=== PATIENT | male | born 1945 | race Two or more races ===

== ENCOUNTER 2022-08-19 05:51 | Inpatient (IN) | payer OTHER ==
[~2022-08-19] VITALS: Ht 170.2 cm; Wt 71.1 kg
[2022-08-19] MEDS ORDERED: SODIUM CHLORIDE 0.9% 500 ML IVB ONE (08:30)
[2022-08-19] MEDS ORDERED: SODIUM CHLORIDE 0.9% 1,000 ML IV ONE (08:30)
[2022-08-19 09:06] LABS: Basophils # (auto) 0 10 ^3/uL (0-0.2); Basophils % (auto) 0.3 % (0.0-2.0); Eosinophils # (auto) 0 10 ^3/uL (0-0.8); Eosinophils % (auto) 0.1 % (0.0-7.0); Hematocrit 36.6 % (41.0-53.0); Hemoglobin 12.1 g/dL (13.5-17.5); Lymphocytes # (auto) 0.9 10 ^3/uL (0.4-5.4); Lymphocytes % (auto) 11.9 % (10.0-50.0); Mean Corpuscular Hemoglobin 30.6 pg (28.0-32.0); Mean Corpuscular Hgb Conc. 33.1 g/dL (32.0-36.0); Mean Corpuscular Volume 92.5 fL (80.0-100.0); Monocytes # (auto) 0.4 10 ^3/uL (0-1.3); Monocytes % (auto) 4.4 % (0.0-12.0); Neutrophils # (auto) 6.6 10 ^3/uL (1.6-8.6); Neutrophils % (auto) 83.3 % (37.0-80.0); Nucleated Red Blood Cells % 0.1 %; Red Blood Cells 3.96 10^6/uL (4.5-5.90)
[2022-08-19] MEDS ORDERED: MORPHINE SULFATE INJ 2 MG/ml SYRG IV ONE (09:15)
[2022-08-19] MEDS ORDERED: ONDANSETRON HCL 4 MG/2 ML VIAL IV ONE ×2 (09:15→14:30)
[2022-08-19 09:20] LABS: INR 1.13 (0.9-1.15); Partial Thromboplastin Time 24.6 sec (24.6-33.4)
[2022-08-19 09:23] LABS: Albumin 2.9 g/dL (3.4-5.0); Calcium 8.6 mg/dL (8.5-10.1); Magnesium 2.1 mg/dL (1.6-2.6); Potassium 4.6 mmol/L (3.5-5.1)
[2022-08-19 09:27] LABS: BUN/Creatinine Ratio 26.9; Total Protein 5.7 g/dL (6.4-8.2)
[2022-08-19] MEDS: HYDROcodone-ACET 5/325MG TAB PO ONE ×2 (14:12→14:18)
[2022-08-19] MEDS ORDERED: HYDROmorphone HCL 2 MG/ML VL/or syr IV ONE (14:30)
[2022-08-19 17:05] LABS: Basophils # (auto) 0 10 ^3/uL (0-0.2); Basophils % (auto) 0.4 % (0.0-2.0); Eosinophils # (auto) 0 10 ^3/uL (0-0.8); Eosinophils % (auto) 0.5 % (0.0-7.0); Hematocrit 33.5 % (41.0-53.0); Hemoglobin 11.4 g/dL (13.5-17.5); Lymphocytes % (auto) 27.7 % (10.0-50.0); Mean Corpuscular Hemoglobin 31.5 pg (28.0-32.0); Mean Corpuscular Hgb Conc. 34.1 g/dL (32.0-36.0); Mean Corpuscular Volume 92.5 fL (80.0-100.0); Monocytes # (auto) 0.5 10 ^3/uL (0-1.3); Monocytes % (auto) 6.6 % (0.0-12.0); Neutrophils # (auto) 4.6 10 ^3/uL (1.6-8.6); Neutrophils % (auto) 64.8 % (37.0-80.0); Nucleated Red Blood Cells % 0.1 %; Red Blood Cells 3.62 10^6/uL (4.5-5.90); Red Cell Distribution Width 14.6 % (11.8-14.3); White Blood Cell 7.1 10^3/uL (4.4-10.8)
[2022-08-19] MEDS ORDERED: PANTOPRAZOLE 40 MG/10 ML VIAL INJ IV ONE (19:00)
[2022-08-19] MEDS ORDERED: ONDANSETRON HCL 4 MG/2 ML VIAL IV PRN (19:00)
[2022-08-19] MEDS ORDERED: cefTRIAXone 1GM/50ML D5W 50 ML IV ONE (19:00)
[2022-08-19] MEDS ORDERED: OCTREOTIDE ACETATE 100 MCG in SODIUM CHL 0.9% 50 ML IV ONE (19:00)
[2022-08-19] MEDS ORDERED: NITROGLYCERIN 0.4 MG SL TAB SL PRN (19:00)
[2022-08-19] MEDS ORDERED: hydrALAZINE HCL 20 MG/ML VL IV PRN (19:30)
[2022-08-19 20:27] LABS: % Iron Saturation 50.8 % (20-55)
[2022-08-19] MEDS ORDERED: OCTREOTIDE ACETATE 500 MCG/ML VL ONE (21:27)
[2022-08-19] MEDS ORDERED: OCTREOTIDE ACETATE 100 MCG/ML VL ONE (21:27)
[2022-08-19] MEDS: SODIUM CHLORIDE 0.9% 1,000 ML IV SCH (21:44)
[2022-08-19] MEDS: OCTREOTIDE ACETATE 500 MCG in SODIUM CHL 0.9% 99 ML IV SCH (21:56)
[2022-08-19] MEDS: metroNIDAZOLE 500MG/100ML 100 ML IV SCH (22:43)
[2022-08-19] MEDS: PANTOPRAZOLE 40 MG/10 ML VIAL INJ IV SCH (22:45)
[2022-08-20] MEDS ORDERED: HYDROcodone-ACET 5/325MG TAB PO ONE (00:30)
[2022-08-20 01:28] LABS: Hematocrit 29.7 % (41.0-53.0); Hemoglobin 10.2 g/dL (13.5-17.5)
[2022-08-20] MEDS: metroNIDAZOLE 500MG/100ML 100 ML IV SCH (05:54)
[2022-08-20] MEDS: OCTREOTIDE ACETATE 500 MCG in SODIUM CHL 0.9% 99 ML IV SCH (06:50)
[2022-08-20 07:36] LABS: BUN/Creatinine Ratio 25.7; Calcium 8.1 mg/dL (8.5-10.1); Potassium 5.2 mmol/L (3.5-5.1)
[2022-08-20 07:37] LABS: Basophils # (auto) 0.1 10 ^3/uL (0-0.2); Basophils % (auto) 0.9 % (0.0-2.0); Eosinophils # (auto) 0.1 10 ^3/uL (0-0.8); Eosinophils % (auto) 1.1 % (0.0-7.0); Hematocrit 28.8 % (41.0-53.0); Hemoglobin 9.9 g/dL (13.5-17.5); Lymphocytes # (auto) 3.6 10 ^3/uL (0.4-5.4); Lymphocytes % (auto) 33.1 % (10.0-50.0); Mean Corpuscular Hemoglobin 32.4 pg (28.0-32.0); Mean Corpuscular Hgb Conc. 34.5 g/dL (32.0-36.0); Mean Corpuscular Volume 93.9 fL (80.0-100.0); Monocytes # (auto) 0.7 10 ^3/uL (0-1.3); Monocytes % (auto) 6.6 % (0.0-12.0); Neutrophils # (auto) 6.3 10 ^3/uL (1.6-8.6); Neutrophils % (auto) 58.3 % (37.0-80.0); Nucleated Red Blood Cells % 0.1 %; Red Blood Cells 3.07 10^6/uL (4.5-5.90); Red Cell Distribution Width 15.1 % (11.8-14.3); White Blood Cell 10.8 10^3/uL (4.4-10.8)
[2022-08-20] MEDS: SODIUM CHLORIDE 0.9% 1,000 ML IV SCH ×3 (08:45→19:33)
[2022-08-20] MEDS ORDERED: cefTRIAXone 1GM/50ML D5W 50 ML IV SCH (09:00)
[2022-08-20 09:56] LABS: Cholesterol 76 mg/dL (< 200); HDL Cholesterol 31 mg/dL (40-59); LDL Cholesterol 37 mg/dL (< 100); Triglycerides 68 mg/dL (< 150)
[2022-08-20] MEDS: PANTOPRAZOLE 40 MG/10 ML VIAL INJ IV SCH ×2 (10:19→21:35)
[2022-08-20 12:38] LABS: Urine Bacteria NONE SEEN /hpf (None Seen); Urine Blood Negative /uL (Negative); Urine Specific Gravity 1.025 (1.001-1.035); Urine WBC <1 /hpf (0 - 3)
[2022-08-20] MEDS ORDERED: MORPHINE SULFATE INJ 2 MG/ml SYRG IV ONE (13:45)
[2022-08-20 13:59] LABS: Folate (Folic Acid) 9.25 ng/mL (5.38-24)
[2022-08-20] MEDS ORDERED: MORPHINE SULFATE INJ 2 MG/ml SYRG IV PRN (14:15)
[2022-08-20 14:45] LABS: Hematocrit 24.3 % (41.0-53.0); Hemoglobin 8.4 g/dL (13.5-17.5)
[2022-08-20] MEDS: TAMSULOSIN HYDROCHLORIDE 0.4 MG CAP PO SCH (16:50)
[2022-08-20] MEDS: MORPHINE SULFATE INJ 2 MG/ml SYRG IV PRN ×2 (16:53→21:36)
[2022-08-20 18:30] VITALS: BP 102/52
[2022-08-20 19:44] LABS: Hemoglobin 8.4 g/dL (13.5-17.5)
[2022-08-20 19:47] LABS: Hematocrit 24.6 % (41.0-53.0)
[2022-08-20 22:00] VITALS: BP 121/65
[2022-08-20] MEDS ORDERED: TAM04C PO (22:59)
[2022-08-20] MEDS ORDERED: LISI20TA28 PO (22:59)
[2022-08-20] MEDS ORDERED: HYDR-4798 PO (23:00)
[2022-08-20] MEDS ORDERED: POLYETHYLENE GLYCOL 17 GM PWDR PO ONE (23:30)
[2022-08-20] MEDS ORDERED: GOLYTELY 4L KIT PO ONE (23:30)
[2022-08-21] VITALS (7 sets, daily range): BP systolic 114–146; BP diastolic 54–78
[2022-08-21] MEDS ORDERED: POLYETHYLENE GLYCOL 17 GM PWDR PO ONE (06:00)
[2022-08-21] MEDS ORDERED: GOLYTELY 4L KIT PO ONE (06:00)
[2022-08-21] MEDS: SODIUM CHLORIDE 0.9% 1,000 ML IV SCH ×3 (06:28→20:52)
[2022-08-21] MEDS ORDERED: SODIUM CHLORIDE LOCK 10 ML ONE (07:57)
[2022-08-21] MEDS: PANTOPRAZOLE 40 MG/10 ML VIAL INJ IV SCH ×2 (09:58→20:52)
[2022-08-21] MEDS: diphenhdrAMINE HCL 50 MG/1 ML VL ONE ×2 (11:58→12:04)
[2022-08-21] MEDS: fentaNYL CITRATE 100 MCG/2 ML VL ONE ×2 (11:58→12:04)
[2022-08-21] MEDS: MIDAZOLAM HCL 5 MG/ML-1ML VIAL ONE ×2 (11:58→12:04)
[2022-08-21] MEDS: TAMSULOSIN HYDROCHLORIDE 0.4 MG CAP PO SCH (18:09)
[2022-08-21] MEDS: HYDROcodone-ACET 10/325MG TAB PO PRN (18:09)
[2022-08-22] VITALS (11 sets, daily range): BP systolic 100–133; BP diastolic 51–70
[2022-08-22] MEDS: HYDROcodone-ACET 10/325MG TAB PO PRN ×3 (03:09→21:36)
[2022-08-22] MEDS: SODIUM CHLORIDE 0.9% 1,000 ML IV SCH ×2 (06:19→10:45)
[2022-08-22 06:59] LABS: Potassium 3.8 mmol/L (3.5-5.1)
[2022-08-22 07:03] LABS: Eosinophils # (auto) 0.2 10 ^3/uL (0-0.8); Lymphocytes # (auto) 1.5 10 ^3/uL (0.4-5.4); Monocytes # (auto) 0.3 10 ^3/uL (0-1.3); Nucleated Red Blood Cells % 0.1 %; White Blood Cell 4.7 10^3/uL (4.4-10.8)
[2022-08-22 07:04] LABS: Basophils # (auto) 0.1 10 ^3/uL (0-0.2); Basophils % (auto) 1.2 % (0.0-2.0); Eosinophils % (auto) 3.5 % (0.0-7.0); Hematocrit 18.3 % (41.0-53.0); Lymphocytes % (auto) 32.7 % (10.0-50.0); Mean Corpuscular Hemoglobin 32.3 pg (28.0-32.0); Mean Corpuscular Hgb Conc. 34.9 g/dL (32.0-36.0); Mean Corpuscular Volume 92.5 fL (80.0-100.0); Monocytes % (auto) 6.2 % (0.0-12.0); Neutrophils # (auto) 2.6 10 ^3/uL (1.6-8.6); Neutrophils % (auto) 56.4 % (37.0-80.0); Red Blood Cells 1.97 10^6/uL (4.5-5.90); Red Cell Distribution Width 14.8 % (11.8-14.3)
[2022-08-22 07:05] LABS: BUN/Creatinine Ratio 13.6; Calcium 7.8 mg/dL (8.5-10.1)
[2022-08-22 07:40] LABS: Hemoglobin 6.4 g/dL (13.5-17.5)
[2022-08-22] MEDS: PANTOPRAZOLE 40 MG/10 ML VIAL INJ IV SCH ×2 (09:03→21:35)
[2022-08-22] MEDS ORDERED: SODIUM CHLORIDE LOCK 10 ML ONE (10:19)
[2022-08-22] MEDS ORDERED: diphenhdrAMINE HCL 50 MG/1 ML VL ONE (10:19)
[2022-08-22] MEDS ORDERED: MIDAZOLAM HCL 5 MG/ML-1ML VIAL ONE (10:19)
[2022-08-22] MEDS ORDERED: fentaNYL CITRATE 100 MCG/2 ML VL ONE (10:20)
[2022-08-22] MEDS ORDERED: LIDOCAINE VISCOUS 2% 15ML UD ONE (10:33)
[2022-08-22] MEDS: TAMSULOSIN HYDROCHLORIDE 0.4 MG CAP PO SCH (19:05)
[2022-08-22] MEDS: SUCRALFATE 1 GM/10 ML ORAL SUSP PO SCH (21:35)
[2022-08-23 02:22] VITALS: BP 119/62
[2022-08-23] MEDS: HYDROcodone-ACET 10/325MG TAB PO PRN ×2 (04:26→09:14)
[2022-08-23] MEDS: SODIUM CHLORIDE 0.9% 1,000 ML IV SCH ×2 (04:39→13:25)
[2022-08-23 05:00] VITALS: BP 110/60
[2022-08-23 06:39] LABS: Basophils # (auto) 0 10 ^3/uL (0-0.2); Basophils % (auto) 1.1 % (0.0-2.0); Eosinophils # (auto) 0.2 10 ^3/uL (0-0.8); Eosinophils % (auto) 4.2 % (0.0-7.0); Hematocrit 24.6 % (41.0-53.0); Hemoglobin 8.6 g/dL (13.5-17.5); Lymphocytes # (auto) 1.2 10 ^3/uL (0.4-5.4); Lymphocytes % (auto) 28.6 % (10.0-50.0); Mean Corpuscular Hemoglobin 31.7 pg (28.0-32.0); Mean Corpuscular Volume 90.6 fL (80.0-100.0); Monocytes # (auto) 0.3 10 ^3/uL (0-1.3); Monocytes % (auto) 6.3 % (0.0-12.0); Neutrophils # (auto) 2.6 10 ^3/uL (1.6-8.6); Neutrophils % (auto) 59.8 % (37.0-80.0); Nucleated Red Blood Cells % 0.4 %; Red Blood Cells 2.71 10^6/uL (4.5-5.90); Red Cell Distribution Width 15.3 % (11.8-14.3); White Blood Cell 4.3 10^3/uL (4.4-10.8)
[2022-08-23] MEDS: SUCRALFATE 1 GM/10 ML ORAL SUSP PO SCH ×2 (06:46→11:05)
[2022-08-23 06:54] LABS: BUN/Creatinine Ratio 11.4; Calcium 7.4 mg/dL (8.5-10.1); Potassium 3.5 mmol/L (3.5-5.1)
[2022-08-23 08:05] VITALS: BP 130/74
[2022-08-23 09:00] VITALS: BP 130/74
[2022-08-23] MEDS: PANTOPRAZOLE 40 MG/10 ML VIAL INJ IV SCH (09:14)
[2022-08-23] MEDS ORDERED: SUCR1TAB22 OR (11:03)
[2022-08-23] MEDS ORDERED: PANT40TA2 PO (11:03)
[2022-08-23 12:28] VITALS: BP 140/87
[2022-08-23 12:29] VITALS: BP 140/87
== END 2022-08-23 14:45 | disposition home or self-care (01) | DRG 393 ==
LOC: ER 05:51 → EDBD 05:51 → TELE 19:18 → TELE-CENTR 08-20 17:58
PROVIDERS: ADMIT Registered Nurse; ATTEND Nurse Practitioner Acute Care
PROC: 0DBL8ZZ Excision of Transverse Colon, Via Natural or Artificial Opening Endoscopic (ICD-10-PCS; 2022-08-21)
PROC: 0DBP8ZZ Excision of Rectum, Via Natural or Artificial Opening Endoscopic (ICD-10-PCS; 2022-08-21)
PROC: 0DBH8ZX Excision of Cecum, Via Natural or Artificial Opening Endoscopic, Diagnostic (ICD-10-PCS; principal; 2022-08-21 11:55)
PROC: 30233N1 Transfusion of Nonautologous Red Blood Cells into Peripheral Vein, Percutaneous Approach (ICD-10-PCS; 2022-08-22)
PROC: 0DB98ZX Excision of Duodenum, Via Natural or Artificial Opening Endoscopic, Diagnostic (ICD-10-PCS; 2022-08-22)
PROC: 0DB68ZX Excision of Stomach, Via Natural or Artificial Opening Endoscopic, Diagnostic (ICD-10-PCS; 2022-08-22)
DX: K63.5 Polyp of colon (principal); K25.4 Chronic or unspecified gastric ulcer with hemorrhage; K29.71 Gastritis, unspecified, with bleeding; K57.31 Diverticulosis of large intestine without perforation or abscess with bleeding; K29.81 Duodenitis with bleeding; K26.4 Chronic or unspecified duodenal ulcer with hemorrhage; E44.0 Moderate protein-calorie malnutrition; K62.1 Rectal polyp; D69.6 Thrombocytopenia, unspecified; E78.5 Hyperlipidemia, unspecified; D64.9 Anemia, unspecified; E86.1 Hypovolemia; I10 Essential (primary) hypertension; R55 Syncope and collapse; K44.9 Diaphragmatic hernia without obstruction or gangrene; R33.8 Other retention of urine; N40.1 Benign prostatic hyperplasia with lower urinary tract symptoms; Z20.822 Contact with and (suspected) exposure to COVID-19; Z87.891 Personal history of nicotine dependence; Z68.24 Body mass index [BMI] 24.0-24.9, adult
CPT/HCPCS: 36415; 43239; 45384; 70450; 70551; 71045; 74177; 80048; 80053; 80061; 81001; 82270; 82271; 82607; 82728; 82746; 83036; 83540; 83550; 83615; 83690; 83735; 83880; 84443; 84484; 85014; 85018; 85025; 85045; 85610; 85730; 86850; 86900; 86901; 86920; 87086; 87426; 93005; 93306; 93886; 96365; 96366; 96367; 96375; 96376; 97163; C9113; G0378; J0696; J2250; J2405; J3490